=== PATIENT | female | born 1975 | race Caucasian/White ===

== ENCOUNTER 2018-06-17 16:25 | Emergency (ER) | payer OTHER ==
[~2018-06-17] VITALS: Wt 99.7 kg
[2018-06-17] MEDS ORDERED: SODIUM CHLORIDE 0.9% 1L BAG IV* STA (16:33)
[2018-06-17] MEDS ORDERED: IBUPROFEN 600 MG TAB PO ONE (17:00)
[2018-06-17] MEDS ORDERED: CEFTRIAXONE 1 GM/50 ML (PMX) 50 ML IVPB ONE (17:00)
--- NOTE | 2018-06-17 17:23 | ERD ---
ER Documentation Chief Complaint Chief Complaint c/o fever, cough, headache x10 days HPI 42-year-old woman complaining of cough, nasal congestion, rhinorrhea, sore throat, headache x1 week. She states she has pain with swallowing and has had tactile fevers for the last 2 to 3 days. She denies recent travel but states her at home has URI symptoms that were milder and resolving. Patient denies abdominal pain, no vomiting or diarrhea, no dysuria, no complaints of chest pain or shortness of breath ROS All systems reviewed and are negative except as per history of present illness. Medications Home Meds Active Scripts Cephalexin* (Keflex*) 500 Mg Capsule, 500 MG PO QID for 5 Days, CAP Prov:VIELKA MEDINA MD 06/17/18 Ibuprofen* (Motrin*) 600 Mg Tab, 600 MG PO Q8 PRN for PAIN AND/OR INFLAMMATION, #30 TAB Prov:VIELKA MEDINA MD 06/17/18 Fluticasone Propionate (Flonase Allergy Relief) 9.9 Ml [place].susp, 1 SPRAY NASAL BID PRN for NASAL CONGESTION for 3 Days, #1 BOTTLE TO EACH NOSTRIL Prov:VIELKA MEDINA MD 06/17/18 Allergies Allergies: Coded Allergies: No Known Allergy (Unverified , 06/17/18) PMhx/Soc Hx Alcohol Use: Yes Hx Substance Use: No Hx Tobacco Use: No Smoking Status: Never smoker FmHx Family History: No diabetes Physical Exam Vitals Vital Signs Date Temp Pulse Resp B/P (MAP) Pulse Ox O2 O2 Flow FiO2 Time Delivery Rate 06/17/18 98.7 81 19 146/82 98 Room Air 18:42 (103) 06/17/18 99.6 17:50 06/17/18 101.2 133 22 201/90 98 16:34 (127) Physical Exam GENERAL: Well-developed, well-nourished, febrile, nontoxic in appearance HEENT: Moist mucous membranes, positive bilateral anterior cervical lymphadenopathy, bilateral pharyngeal erythema with exudates, uvula is midline, no submandibular induration. No Kernig sign NEURO: Alert and oriented 3, cranial nerves II through XII intact bilaterally, pupils equal round reactive to light, no focal deficits or facial asymmetry, sensation intact distally Strength 5/5 in upper and lower extremities khadijah aterally CARDIAC: Tachycardic and regular, no murmurs rubs or gallops LUNGS: Clear bilaterally no wheezing crackles or stridor ABDOMEN: Soft nontender, no guarding, no rigidity, no rebound, no psoas sign no obturator sign. SKIN: Warm and dry to touch, no abrasions, contusions, or hematomas, no lacer ations, no ecchymosis, no target lesions, and without ulcers EXTREMITIES: No clubbing cyanosis or edema, calves are bilaterally symmetrical, no Homans sign, no popliteal cord sign. Distal pulses equal and bilateral PSYCH: Normal affect without agitation or irritability Result Diagram: 06/17/18 1649 06/17/18 1649 Results 24 hrs Laboratory Tests Test 06/17/18 16:43 06/17/18 16:49 06/17/18 17:52 POC Venous Lactate 1.3 mmol/L White Blood Count 14.9 10^3/ul Red Blood Count 4.37 10^6/ul Hemoglobin 13.4 g/dl Hematocrit 40.6 % Mean Corpuscular Volume 92.9 fl Mean Corpuscular Hemoglobin 30.7 pg Mean Corpuscular 33.0 g/dl Hemoglobin Concent Red Cell Distribution Width 12.7 % Platelet Count 392 10^3/UL Mean Platelet Volume 9.0 fl Immature Granulocytes % 0.400 % Neutrophils % 81.2 % Lymphocytes % 8.8 % Monocytes % 8.0 % Eosinophils % 1.3 % Basophils % 0.3 % Nucleated Red Blood Cells % 0.0 /100WBC Immature Granulocytes # 0.060 10^3/ul Neutrophils # 12.1 10^3/ul Lymphocytes # 1.3 10^3/ul Monocytes # 1.2 10^3/ul Eosinophils # 0.2 10^3/ul Basophils # 0.1 10^3/ul Nucleated Red Blood Cells # 0.0 10^3/ul Prothrombin Time 13.1 Sec Prothrombin Time Ratio 1.0 INR International 0.98 Normalized Ratio Activated Partial Thromboplast 25.7 Sec Time Sodium Level 138 mmol/L Potassium Level 3.8 mmol/L Chloride Level 102 mmol/L Carbon Dioxide Level 25 mmol/L Anion Gap 11 Blood Urea Nitrogen 10 mg/dl Creatinine 0.64 mg/dl Est Glomerular Filtrat > 60 mL/min Rate mL/min Glucose Level 114 mg/dl Calcium Level 9.2 mg/dl Total Bilirubin 0.2 mg/dl Direct Bilirubin 0.00 mg/dl Indirect Bilirubin 0.2 mg/dl Aspartate Amino 18 IU/L Transf (AST/SGOT) Alanine 14 IU/L Aminotransferase (ALT/SGPT) Alkaline Phosphatase 111 IU/L Troponin I < 0.012 ng/ml Total Protein 8.1 g/dl Albumin 4.3 g/dl Globulin 3.80 g/dl Albumin/Globulin Ratio 1.13 Lipase 54 U/L Urine Color COLORLESS Urine Clarity CLEAR Urine pH 7.0 Urine Specific [place] 1.003 Urine Ketones NEGATIVE mg/dL Urine Nitrite NEGATIVE mg/dL Urine Bilirubin NEGATIVE mg/dL Urine Urobilinogen NEGATIVE mg/dL Urine Leukocyte Esterase TRACE Sherry/ul Urine Microscopic RBC 1 /HPF Urine Microscopic WBC 3 /HPF Urine Squamous Epithelial Cells FEW /HPF Urine Bacteria FEW /HPF Urine Hemoglobin 1+ mg/dL Urine Glucose NEGATIVE mg/dL Urine Total Protein NEGATIVE mg/dl Current Medications Medications Dose Sig/Amy Start Time Status Last (Trade) Ordered Route PRN Stop Time Admin Dose Reason Admin Sodium 3,000 ml BOLUS OVER 2 06/17/18 DC 06/17/18 Chloride HOURS STAT 16:33 16:57 (NS) IV* 06/17/18 16:37 Ibuprofen 600 mg ONCE ONCE 06/17/18 DC 06/17/18 (Motrin) PO 17:00 16:57 06/17/18 17:01 Ceftriaxone 50 ml @ ONCE ONCE 06/17/18 DC 06/17/18 Sodium 100 mls/hr IVPB 17:00 16:57 06/17/18 17:29 Procedures/MDM IV line was established patient was placed on secured entrance monitor rhythm strip revealed a sinus tachycardia at 120 bpm with upright P and T waves. Patient was febrile, blood and urine cultures have been ordered results are pending I will follow-up. I do not suspect sepsis. Administered 3 L normal saline IV and ibuprofen 600 mg p.o. Patient also received ceftriaxone 1 g IV Chest X-ray 1V Interpreted by me: Soft Tissue: No acute abnormalities Bones: No acute abnormalities Mediastinum/Cardiac Silhouette/Lungs: No acute abnormalities EKG performed, read by me revealed a normal sinus rhythm at 98 bpm, normal axis, narrow QRS complex, no concerning ST elevations or depressions noted Lactic acid levels low at 1.3. CBC revealed a mild leukocytosis of 15, electrolytes were within normal limits, liver function tests are normal, urinalysis was negative for infection Flu swabs were negative. Differential diagnoses considered, included but not limited to acute coronary syndrome, pulmonary embolism, aortic dissection, abdominal aortic aneurysm, sepsis, stroke, meningitis, encephalitis, pneumonia, appendicitis, cholecystitis, bowel obstruction, pyelonephritis, nephrolithiasis, cystitis, as well as metabolic, hematologic, and electrolyte abnormalities. As well as abscess, cellulitis, fractures, and dislocations. Patient feels much better at this time, and vital signs are normal, symptoms have improved. I did give strict instructions to return to the ED if symptoms continue or worsen, patient will otherwise follow-up with primary care physician. Patient understood instructions and agreed to plan. Disclaimer: Inadvertent spelling and grammatical errors are likely due to EHR/dictation software use and do not reflect on the overall quality of patient care. Also, please note that the electronic time recorded on this note does not necessarily reflect the actual time of the patient encounter. Departure Diagnosis: Primary Impression: Acute URI Additional Impression: Strep pharyngitis Condition: Good VIELKA MEDINA MD Jun 17, 2018 17:23
[2018-06-17] MEDS ORDERED: FLUT9.9S NASAL (18:23)
[2018-06-17] MEDS ORDERED: CEPH-443 PO (18:23)
[2018-06-17] MEDS ORDERED: IBUP-1542 PO (18:23)
[2018-06-17 18:42] VITALS: BP 146/82; PULSE 81; RESP 19
== END 2018-06-17 18:44 | disposition home or self-care (01) ==
LOC: E/R 16:25
DX: J06.9 Acute upper respiratory infection, unspecified (principal); R07.9 Chest pain, unspecified
CPT/HCPCS: 36415; 71045; 80053; 81001; 83605; 83690; 84484; 85025; 85610; 85730; 87040; 87086; 87400; 93005; 96374; 99285; J0696; J7030